=== PATIENT | male | born 1955 | race Caucasian/White ===

== ENCOUNTER → 2020-11-06 08:23 | Day surgery (SDC) | payer MEDICARE, SELFPAY ==
[2020-11-06 09:16] VITALS: BP 143/75; PULSE 54; RESP 18; TEMP 36.3; O2SAT 99; BMI 34.2
== END ==
PROVIDERS: PCP Nurse Practitioner Family; Visit Provider Nurse Practitioner Family
DX: C85.90 Non-Hodgkin lymphoma, unspecified, unspecified site (principal)
CPT/HCPCS: 96368

== ENCOUNTER → 2020-12-18 08:57 | Day surgery (SDC) | payer MEDICARE, SELFPAY ==
[2020-12-18 09:10] VITALS: BP 172/86; PULSE 55; RESP 18; TEMP 36.6; O2SAT 98
== END ==
PROVIDERS: PCP Nurse Practitioner Family; Visit Provider Nurse Practitioner Family
DX: Z95.828 Presence of other vascular implants and grafts (principal)
CPT/HCPCS: 96368; 96523

== ENCOUNTER → 2021-01-29 08:39 | Day surgery (SDC) | payer MEDICARE, SELFPAY ==
[2021-01-29 08:51] VITALS: BP 167/85; PULSE 54; RESP 16; TEMP 36.4; O2SAT 98
[2021-01-29 08:57] VITALS: BMI 34.9
== END ==
PROVIDERS: PCP Nurse Practitioner Family; Visit Provider Nurse Practitioner Family
DX: C85.90 Non-Hodgkin lymphoma, unspecified, unspecified site (principal); Z95.828 Presence of other vascular implants and grafts
CPT/HCPCS: 96368; 96523